=== PATIENT | female | born 1995 | race Caucasian/White ===

== ENCOUNTER 2018-10-18 08:53 | Day surgery (SDC) | payer OTHER ==
[2018-10-18] VITALS (10 sets, daily range): BP systolic 102–133; BP diastolic 51–77
[~2018-10-18] VITALS: Ht 175.3 cm; Wt 72.6 kg
--- NOTE | 2018-10-18 08:20 | History & Physical ---
History and Physical History & Physicial GYNECOLOGY HISTORY & PHYSICAL CC: Incomplete with hemorrhage HPI: Patient is a 23yo who was diagnosed with incomplete vs threatened . She has had very heavy bleeding over the last 24 hours. She has a history of DVT in her left leg and is on anticoagulation. This is now an undesired . PMH: DVT on OCPs, Factor V Leiden deficiency PSH: Vascular stenting for DVT, failed Meds: Lovenox 70 BID, Xanax Allergies: NKDA OBHx: TAb x 1 GYNHx: ASCUS/HPV Pap, no cysts of fibroids. LMP 08/26/18 SocHx: Lives with partner, denies T/E/D FamHx: Non-contributory Vitals: WNL Exam: Gen: NAD HEENT: OP clear, MMM CV: Reg rate Pulm: No increased work of breathing Abd: Soft, NTND Pelvic: +Blood in vault, cervix soft, internal os closed Ext: mild swelling in LLE, RLE wnl Imaging: GS in endocervical canal, hemorrhagic cyst on right Assessment/Plan: 23yo with incomplete vs threatened , with heavy bleeding over the last 24h, DVT in left leg and currently on Lovenox. - Last dose of Lovenox was at 2pm yesterday - Plan for D&C with and without suction - Anticipate d/c home from PACU barring any complications - R/B/A discussed with the patient, and she agrees to the surgical plan - Patient is at risk of continued heavy bleeding due to status of and fact that patient is on anticoagulation, which puts her at risk of emergent surgery with added blood loss Signed: MD Jhonny Joyner Carla M.D. Oct 18, 2018 08:20
[2018-10-18] MEDS ORDERED: Propofol 200mg/20ml IV ONE (09:49)
[2018-10-18] MEDS ORDERED: Midazolam 2mg/2ml Inj ONE ×2 (09:49→11:27)
[2018-10-18] MEDS ORDERED: Lidocaine 1% MPF 10mg/ml 5ml ONE (09:49)
[2018-10-18] MEDS ORDERED: fentaNYL 100 mcg/2 mL IV ONE (09:49)
[2018-10-18] MEDS ORDERED: Glycopyrrolate 0.2mg/ml 1ml Vial ONE (09:50)
[2018-10-18] MEDS ORDERED: Neostigmine 1mg/ml 10ml Inj ONE (09:50)
[2018-10-18] MEDS ORDERED: LOVENOX80 MG/0.8 SUBQ (09:59)
[2018-10-18] MEDS ORDERED: XANAX1 MG ORAL (09:59)
[2018-10-18] MEDS ORDERED: XARELTO20 MG ORAL (09:59)
[2018-10-18] MEDS ORDERED: ACETAMINOPHEN-1 EAC1 ORAL (09:59)
--- NOTE | 2018-10-18 09:59 | Pre-Procedure Note/Attestation ---
Pre-Procedure Note/Attestation Complete Prior to Procedure Planned Procedure: not applicable Procedure Narrative: Dilation and curettage with and without suction Indications for Procedure Pre-Operative Diagnosis: Incomplete with hemorrhage Attestation I attest that I discussed the nature of the procedure; its benefits; risks and complications; and alternatives (and the risks and benefits of such alternatives ), prior to the procedure, with the patient (or the patient's legal passenger service representative). I attest that, if there was a reasonable possibility of needing a blood transfusion, the patient (or the patient's legal passenger service representative) was given the [facility] standardized written summary, pursuant to the Lyle [place] Blood Safety Act ([place] Health and Safety Code # 1645, as amended). I attest that I re-evaluated the patient just prior to the surgery and that there has been no change in the patient's H&P, except as documented below: None Maribel Barry M.D. Oct 18, 2018 09:59
[2018-10-18] MEDS ORDERED: Norco 5mg/325mg tab ORAL PRN (10:15)
[2018-10-18] MEDS ORDERED: HYDROmorphone 1mg/ml Carpuject SUBQ PRN (10:15)
[2018-10-18] MEDS ORDERED: D5 1/2NS 1,000 ML IV SCH (10:15)
[2018-10-18] MEDS ORDERED: Tylenol #3 tab (300mg/30mg) ORAL PRN (10:15)
[2018-10-18] MEDS ORDERED: Lidocaine 1% 10mg/ml/Epi 0.005mg/ml 30ml vial INJ ONE (10:33)
[2018-10-18] MEDS ORDERED: LR 1000ml ONE (11:00)
[2018-10-18] MEDS ORDERED: Sterile Water Irrig 1000ml IRRIG ONE (11:00)
[2018-10-18] MEDS ORDERED: Dexamethasone 4mg/ml vial ONE (11:00)
[2018-10-18] MEDS ORDERED: NS Irrig 1000ml ONE (11:00)
--- NOTE | 2018-10-18 11:20 | Brief Operative Note ---
Immediate Post Operative Note Operative Note Chief Complaint: Vaginal bleeding, , incomplete miscarriage Pre-op Diagnosis: Incomplete with hemorrhage Procedure: Dilation and curettage with and without suction Post-op Diagnosis: Incomplete Surgeon: Maribel Barry MD Anesthesia: general - LMA Specimen: yes - Intrauterine contents Complications: none Condition: stable Fluids: Crystalolloid Estimated Blood Loss: minimal Drains: none Implant(s) used?: No Maribel Barry M.D. Oct 18, 2018 11:20
--- NOTE | 2018-10-18 11:21 | Operative Note - PDOC ---
Operative Note Operative Note Date of Operation/Procedure: Oct 18, 2018 Chief Complaint: Vaginal bleeding, , incomplete miscarriage Pre-op Diagnosis: Incomplete with hemorrhage Procedure: Dilation and curettage with and without suction Post-op Diagnosis: Incomplete Surgeon: Maribel Barry MD Anesthesiologist: Carly Zelaya cRNA Anesthesia: general - LMA Specimen: yes - Intrauterine contents Complications: none Condition: stable Fluids: Crystalolloid Estimated Blood Loss: minimal Drains: none Implant(s) used?: No Indications for Procedure Heavy vaginal bleeding, incomplete miscarriage, on anticoagulation with history of DVT Description of Procedure The R/B/A of the procedure were discussed with the patient at length, and informed consent was obtained. The patient held her 2am dose of Lovenox per her [employer] Developer's recommendations. She was taken to the operating room with left leg marked given clot in left leg. SCD stocking was placed on the right leg and general LMA anesthesia was administered without difficulty. The patient was then prepped and draped in the usual sterile fashion and her bladder was emptied using a straight catheter in and out. Time out was called to verify correct patient and procedure and antibiotics were administered. A bivalve speculum was inserted into the vagina and the anterior lip of the cervix was grasped with a ring forceps. The cervix was dilated to accommodate the 7mm rigid curette. Suction curettage was performed with the 7mm curette, followed by the 6mm flexible curette. Fractional D&C confirmed a gritty texture throughout. The curettage was terminated. Intrauterine contents were sent to pathology. 10cc of 1% Lidocaine with epinephrine was injected into the cervix to minimize pain and bleeding given her recent anticoagulation and heavy bleeding. All instruments were removed from the vagina. All sponge and instrument counts were correct x 3. The patient was awakened from anesthesia without complication and taken to the PACU for anticipated discharge. She will follow up with me in 1 -2 weeks as an outpatient. Maribel Barry M.D. Oct 18, 2018 11:21
--- NOTE | 2018-10-18 11:39 | Anethesia Preoperative Eval ---
Anesthesia Pre-op PMH/ROS General Date of Evaluation: Oct 18, 2018 Time of Evaluation: 10:41 Anesthesiologist: Carly Zelaya CRNA ASA Score: ASA 2 Mallampati Score Class I : Soft palate, uvula, fauces, pillars visible Class II: Soft palate, uvula, fauces visible Class III: Soft palate, base of uvula visible Class IV: Only hard plate visible Mallampati Classification: Class I Surgeon: Jhonny Diagnosis: Miscarriage Surgical Procedure: Dilation and curretage Anesthesia History: none Family History: no anesthesia problems Allergies: Coded Allergies: No Known Allergies (Unverified , 10/18/18) Patient NPO?: Yes NPO Date: Oct 18, 2018 NPO Time: 00:00 Past Medical History Cardiovascular: Denies: HTN, CAD, NM, valve dz, arrhythmia, other Pulmonary: Reports: other - Bronchitis September 2018; current URI; Denies: asthma, COPD, AMANDEEP Gastrointestinal/Genitourinary: Reports: other - spontaneous miscarriage; Denies: GERD, CRI, ESRD Neurologic/Psychiatric: Reports: depression/anxiety - anxiety xanax QD; Denies: dementia, CVA, TIA, other Endocrine: Denies: DM, hypothyroidism, steroids, other HEENT: Denies: cataract (L), cataract (R), glaucoma, [place] (L), [place] (R), other Hematology/Immune: Reports: DVT - LEFT leg; lovenox QD, LD 10/17/18 @1400; Leidens Factor V deficiency; Denies: anemia, bleeding disorder, other PMH Narrative: as above PSxH Narrative: see H & P Anesthesia Pre-op Phys. Exam Physician Exam Last Vital Signs Date Time Temp Pulse Resp B/P (MAP) Pulse Ox O2 Delivery O2 Flow Rate FiO2 10/18/18 10:08 97.9 64 20 119/77 100 Room Air Constitutional: NAD Neurologic: CN 2-12 intact Cardiovascular: RRR Respiratory: CTA Gastrointestinal: S/NT/ND Airway Exam Mallampati Score: Class I MO: full Neck: FROM TMD: > 3 FB ROM: full Teeth: intact Dentures: no upper, no lower Anesthesia Pre-op A/P Risk Assessment & Plan Assessment: ASA 2, ok to proceed Plan: GA Status Change Before Surgery: No Pre-Antibiotics Drug: Carly Bonilla CRNA Oct 18, 2018 11:39
--- NOTE | 2018-10-18 11:43 | Immediate Post-Op Evaluation ---
Immediate Post-Op Evalulation Immediate Post-Op Evalulation Procedure: Dilation and curretage Date of Evaluation: Oct 18, 2018 Time of Evaluation: 11:26 IV Fluids: LR 1000 ml Estimated Blood Loss: 10 ml Blood Pressure Systolic: 124 Blood Pressure Diastolic: 73 Pulse Rate: 99 Respiratory Rate: 22 O2 Sat by Pulse Oximetry: 100 Temperature (Fahrenheit): 97.4 Pain Score (1-10): 0 Nausea: No Vomiting: No Complications none Patient Status: awake, reacts, patent, extubated Hydration Status: adequate Drug: cefazolin 1000 mg IV Given Within 1 Hr of Incision: Yes Time Given: 11:00 Carly Zelaya CRNA Oct 18, 2018 11:43
[2018-10-18] MEDS ORDERED: Hydromorphone 0.5mg/0.5ml inj IVP PRN (11:45)
[2018-10-18] MEDS ORDERED: LORazepam Inj 2mg/ml 1ml IV PRN (11:45)
--- NOTE | 2018-10-18 11:52 | 48 Hour Post Anesthesia Eval ---
Post Anesthesia Evaluation Procedure: Dilation and curretage Date of Evaluation: Oct 18, 2018 Time of Evaluation: 11:51 Blood Pressure Systolic: 122 0: 69 Pulse Rate: 72 Respiratory Rate: 20 Temperature (Fahrenheit): 97.6 O2 Sat by Pulse Oximetry: 100 Airway: patent Nausea: No Vomiting: No Pain Intensity: 0 Hydration Status: adequate Cardiopulmonary Status: stable Mental Status/LOC: patient returned to baseline Follow-up Care/Observations: per Gyne Post-Anesthesia Complications: none Follow-up care needed: ready to discharge Carly Zelaya CRNA Oct 18, 2018 11:52
== END 2018-10-18 13:15 | disposition home or self-care (01) ==
LOC: SUR 08:53
DX: O03.4 Incomplete spontaneous abortion without complication (principal); F32.9 Major depressive disorder, single episode, unspecified; F41.9 Anxiety disorder, unspecified; D68.51 Activated protein C resistance; Z86.718 Personal history of other venous thrombosis and embolism
CPT/HCPCS: 59812; J1100; J2250; J2405; J2704; J2710; J3010; 94003; 94150